=== PATIENT | male | born 1975 | race Caucasian/White ===

== ENCOUNTER → 2021-08-26 | Outpatient (CLI) | payer BC, OTHER ==
[2016-04-03 20:16] VITALS: BP 165/110
[~2021-08-26] MED LIST: DOXY100T PO; HYDR-1179 PO; HYDR4TAB PO; IBUP600T16 PO; KETO10TA PO; LEVO500T59 PO; ONDA8TAB12 PO; TAMS0.4C97 PO; TERB125S TP
--- NOTE | 2021-08-26 16:50 | RAD ---
PQRS Compliance Statement: One or more of the following individualized dose reduction techniques were utilized for this examinat ion: 1. Automated exposure control 2. Adjustment of the mA and/or kV according to patient size 3. Use of iterative reconstruction technique CT NECK SOFT TISSUE WITHOUT CONTRAST Clinical Indication: Neck mass. Comparison: None. TECHNIQUE: Helical CT imaging of the soft tissues of the neck is performed without IV contrast. Findings: Visualized globes and orbits are intact. There is no midline shift in the visualized brain. There is minimal mucosal thickening inferiorly in the bilateral maxillary sinuses. There is no air-fluid level . Mastoid air cells are aerated. The parotid and submandibular glands are symmetric. No cervical adenopathy is identified. The epiglot tis and aryepiglottic folds and vallecula and piriform sinuses are unremarkable. At the expected level of the thyroid gland there is a right and left of midline neck mass suspected t o be thyroid goiter. The inferior extent of the masses is not imaged. The right mass measures greater than 8.5 cm craniocaudal and is 7.6 cm transverse and 3.9 cm AP. At midline the AP thickness is 1 cm . The left neck mass measures greater than 5.6 cm craniocaudal and is 3.9 cm AP by 5.6 cm transverse. The mass heterogeneously enhances. There are a couple of coarse calcifications in the mass. There is slight rightward deviation of the trachea. No significant narrowing is seen. There are mild degenerative changes of the cervical spine. Approximately 3 bilateral dental cavities are incidentally noted. IMPRESSION: At the expected location of the thyroid gland there is a large mass in the right and left neck and an terior midline. The inferior extent of the mass is not imaged. There is slight rightward deviation of the trachea. No significant narrowing of the trachea is seen. Findings suggest large thyroid goiter. Thyroid ultrasound may or may not be useful. If in question, to confirm thyroid origin of the mass a nuclear medicine thyroid scan could be performed. Electronically signed by: Donald Cyr MD (08/26/2021 4:48 PM) [id number]
== END ==
LOC: CT 15:33
PROVIDERS: ATTEND Hospitalist
DX: R22.1 Localized swelling, mass and lump, neck (principal); J39.8 Other specified diseases of upper respiratory tract; K02.9 Dental caries, unspecified
CPT/HCPCS: 70490